=== PATIENT | male | born 1935 | race Caucasian/White ===

== ENCOUNTER 2016-04-24 11:39 | Emergency (ER) ==
--- NOTE | 2016-04-24 11:56 | PROVIDER DOCUMENTATION ---
HPI-Abdominal Pain/GI Problem - General Chief Complaint: Abdominal Pain Stated Complaint: abd pain Time Seen by Provider: 04/24/16 11:55 Source: patient, EMS Allergies/Adverse Reactions: Patient Allergies Allergy/AdvReac Type Severity Reaction Status Date / Time No Known Allergies Allergy Verified 04/24/16 11:55 Home Medications: Home Medication List Medication Instructions Recorded Confirmed Last Taken Type Aspirin [Aspir-Low] 81 mg PO DAILY 04/24/16 04/24/16 Unknown History Carvedilol 3.125 mg PO DAILY 04/24/16 04/24/16 Unknown History Cetirizine HCl [Zyrtec] 10 mg PO DAILY 04/24/16 04/24/16 Unknown History Docusate Sodium [Colace] 100 mg PO DAILY 04/24/16 04/24/16 Unknown History Donepezil [Aricept] 5 mg PO QAM 04/24/16 04/24/16 Unknown History LISINOpril [Prinivil] 10 mg PO DAILY 04/24/16 04/24/16 Unknown History Memantine HCl [Namenda] 5 mg PO DAILY 04/24/16 04/24/16 Unknown History Oxcarbazepine [Trileptal] 150 mg PO DAILY 04/24/16 04/24/16 Unknown History Quetiapine Fumarate [Seroquel] 25 mg PO DAILY 04/24/16 04/24/16 Unknown History Trazodone [Desyrel] 50 mg PO QHS 04/24/16 04/24/16 Unknown History - History of Present Illness-ABD Nature of Presenting Problems: Family reports intermittent abdominal and chest pain. No fever, no n/v. no cough. 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 [facility] resident with severe dementia, DNR . Denies CP currently. Some dysnea with exertion Abdominal Pain Onset Location: reports: generalized abdomen Pain Radiation: reports: no radiation Quality of Pain: reports: aching Severity in ED: reports: moderate Timing: reports: still present, intermittent Activities at Onset: reports: none Exposure to sick contacts?: No Last BM: unsure Dark Stools Present?: reports: none noticed Rectal Bleeding: reports: none Rectal Pain: reports: none Review of Systems - Adult - REVIEW OF SYSTEMS - ADULT ROS:: unobtainable per condition Constitutional: reports: no symptoms reported Ears, Nose, Mouth & Throat: reports: no symptoms reported Cardiovascular: reports: chest pain Respiratory: reports: shortness of breath Gastrointestinal: reports: no symptoms reported Genitourinary: reports: no symptoms reported Past History - Adult - PAST MEDICAL HISTORY-ADULT Review of Records: reports: Nursing Assessment Review, Medications Reviewed Major Childhood Illnesses: reports: history unknown Cardiovascular: reports: CAD, CHF, HTN Respiratory: reports: denies history Gastrointestinal: reports: denies history Genitourinary: reports: denies history Musculoskeletal: reports: arthritis, other (back pain) Psychiatric: reports: other (dementia) - PRIOR SURGERIES/PROCEDURES Surgical/Procedure History: reports: CABG Physical Exam-General - PHYSICAL EXAM-ADULT Initial Vital Signs Reviewed: Yes - CONSTITUTIONAL General Appearance: appears well, alert, no apparent distress - EYES Eyes: PERRL/EOMI - HEAD, EARS, NOSE, MOUTH & THROAT HENMT: moist mucous membranes, normal ENT inspection - NECK Neck: non-tender, full range of motion - RESPIRATORY Respiratory: chest non-tender, decreased breath sounds (at bases) - CARDIOVASCULAR Cardiovascular: regular rate, rhythm, no edema, no gallop, no JVD, no murmur - GASTROINTESTINAL (ABDOMEN) Abdominal Exam: normal bowel sounds, non tender, soft, no organomegaly - GENITOURINARY Male Genitalia: normal genitalia Rectal Exam: deferred - LYMPHATIC Lymphatic: no adenopathy - MUSCULOSKELETAL Back Exam: no CVA tenderness, no vertebral tenderness Extremity: normal inspection, no pedal edema - NEUROLOGIC Neurologic: grossly normal, no motor/sensory deficits - PSYCHIATRIC Psych/Mental Status: other (oriented to self only) Progress - PLAN OF CARE/RESULTS Progress/Plan/Lab Results: Laboratory Tests 04/24/16 04/24/16 04/24/16 12:10 12:10 12:10 WBC 8.79 RBC 3.68 L Hgb 9.3 L Hct 30.2 L MCV 82.1 MCH 25.3 L MCHC 30.8 L RDW Std Deviation 15.8 H Plt Count 307 MPV 9.3 Immature Gran % (Auto) 0.0 Neut % (Auto) 74.0 Lymph % (Auto) 11.4 L [place] % (Auto) 9.3 Eos % (Auto) 5.0 Baso % (Auto) 0.3 Immature Gran # (Auto) 0.00 Neut # (Auto) 6.50 Lymph # (Auto) 1.00 L [place] # (Auto) 0.82 H Eos # (Auto) 0.44 Baso # (Auto) 0.03 Sodium 142 Potassium 4.7 Chloride 106 Carbon Dioxide 24 L Anion Gap 12 BUN 29 H Creatinine 1.3 H Estimated GFR/1.73 m2 53 BUN/Creatinine Ratio 22 Glucose 105 H Calculated Osmolality 289 Calcium 8.9 Total Bilirubin 0.32 AST 20 ALT 23 Alkaline Phosphatase 109 Troponin T < 0.010 Oed-F-Rkigqfycrjc Pept Total Protein 6.8 Albumin 3.7 Globulin 3.1 Albumin/Globulin Ratio 1.2 Amylase 52 Lipase 19 Urine Source Urine Color Urine Turbidity Urine pH Ur Specific [place] Urine Protein Ur Glucose (Stick) Ur Ketones (Stick) Urine Blood Urine Nitrite Urine Bilirubin Urobilinogen Dipstick Urine Leukocytes Urine WBC (Auto) Urine RBC (Auto) U Epithel Cells (Auto) Urine Bacteria (Auto) 04/24/16 04/24/16 12:10 12:10 WBC RBC Hgb Hct MCV MCH MCHC RDW Std Deviation Plt Count MPV Immature Gran % (Auto) Neut % (Auto) Lymph % (Auto) [place] % (Auto) Eos % (Auto) Baso % (Auto) Immature Gran # (Auto) Neut # (Auto) Lymph # (Auto) [place] # (Auto) Eos # (Auto) Baso # (Auto) Sodium Potassium Chloride Carbon Dioxide Anion Gap BUN Creatinine Estimated GFR/1.73 m2 BUN/Creatinine Ratio Glucose Calculated Osmolality Calcium Total Bilirubin AST ALT Alkaline Phosphatase Troponin T Mpk-M-Leuhoginmcq Pept > 96883 H Total Protein Albumin Globulin Albumin/Globulin Ratio Amylase Lipase Urine Source CLEAN CATCH Urine Color YELLOW Urine Turbidity CLEAR Urine pH 6.0 Ur Specific [place] 1.026 Urine Protein 70 A Ur Glucose (Stick) NEGATIVE Ur Ketones (Stick) NEGATIVE Urine Blood NEGATIVE Urine Nitrite NEGATIVE Urine Bilirubin NEGATIVE Urobilinogen Dipstick NORMAL Urine Leukocytes TRACE A Urine WBC (Auto) <10 Urine RBC (Auto) <10 U Epithel Cells (Auto) <10 Urine Bacteria (Auto) NEGATIVE Orders Category Date Time Status Saline Loc DIRECTED Care 04/24/16 12:05 Active NPO Diet 04/24/16 12:05 Active ABDOMEN/PELVIS W/O CONTRAST [CT] Stat Exams 04/24/16 13:05 Draft CHEST-PORTABLE [RAD] Stat Exams 04/24/16 12:06 Draft AMYLASE [CHEM] Stat Lab 04/24/16 12:10 Completed CBC WITH ELECTRONIC DIFF [HEME] Stat Lab 04/24/16 12:10 Completed COMPREHENSIVE METABOLIC PANEL [CHEM] Stat Lab 04/24/16 12:10 Completed LIPASE [CHEM] Stat Lab 04/24/16 12:10 Completed TROPONIN T Stat Lab 04/24/16 12:10 Completed URINALYSIS W/POSS RFLX CULT [URINALYSIS] Stat Lab 04/24/16 12:10 Completed pro-bnp [PRO B-NATRIURETIC PEPTIDE] Stat Lab 04/24/16 12:10 Completed Furosemide [Lasix] Med 04/24/16 14:13 Discontinued 40 mg IV NOW ONE EKG [EKG] Stat Ther 04/24/16 12:04 Ordered Vital Signs Temp Pulse Resp BP Pulse Ox 04/24/16 14:21 69 14 195/75 95 04/24/16 13:24 18 213/97 04/24/16 11:40 97.6 F 72 22 199/85 97 No Known Allergies Allergy (Verified 04/24/16 11:55) Aspirin [Aspir-Low] 81 mg PO DAILY 04/24/16 Carvedilol 3.125 mg PO DAILY 04/24/16 Cetirizine HCl [Zyrtec] 10 mg PO DAILY 04/24/16 Docusate Sodium [Colace] 100 mg PO DAILY 04/24/16 Donepezil [Aricept] 5 mg PO QAM 04/24/16 LISINOpril [Prinivil] 10 mg PO DAILY 04/24/16 Memantine HCl [Namenda] 5 mg PO DAILY 04/24/16 Oxcarbazepine [Trileptal] 150 mg PO DAILY 04/24/16 Quetiapine Fumarate [Seroquel] 25 mg PO DAILY 04/24/16 Trazodone [Desyrel] 50 mg PO QHS 04/24/16 Dietary Diet NPO Start WedApr 24 1205 Laboratory 04/24/16 04/24/16 04/24/16 12:10 12:10 12:10 WBC RBC Hgb Hct MCV MCH MCHC RDW Std Deviation Plt Count MPV Immature Gran % (Auto) Neut % (Auto) Lymph % (Auto) [place] % (Auto) Eos % (Auto) Baso % (Auto) Immature Gran # (Auto) Neut # (Auto) Lymph # (Auto) [place] # (Auto) Eos # (Auto) Baso # (Auto) Sodium Potassium Chloride Carbon Dioxide Anion Gap BUN Creatinine Estimated GFR/1.73 m2 BUN/Creatinine Ratio Glucose Calculated Osmolality Calcium Total Bilirubin AST ALT Alkaline Phosphatase Troponin T < 0.010 Uwi-X-Ivyoxnepbru Pept > 32866 H Total Protein Albumin Globulin Albumin/Globulin Ratio Amylase Lipase Urine Source CLEAN CATCH Urine Color YELLOW Urine Turbidity CLEAR Urine pH 6.0 Ur Specific [place] 1.026 Urine Protein 70 A Ur Glucose (Stick) NEGATIVE Ur Ketones (Stick) NEGATIVE Urine Blood NEGATIVE Urine Nitrite NEGATIVE Urine Bilirubin NEGATIVE Urobilinogen Dipstick NORMAL Urine Leukocytes TRACE A Urine WBC (Auto) <10 Urine RBC (Auto) <10 U Epithel Cells (Auto) <10 Urine Bacteria (Auto) NEGATIVE 04/24/16 04/24/16 12:10 12:10 WBC 8.79 RBC 3.68 L Hgb 9.3 L Hct 30.2 L MCV 82.1 MCH 25.3 L MCHC 30.8 L RDW Std Deviation 15.8 H Plt Count 307 MPV 9.3 Immature Gran % (Auto) 0.0 Neut % (Auto) 74.0 Lymph % (Auto) 11.4 L [place] % (Auto) 9.3 Eos % (Auto) 5.0 Baso % (Auto) 0.3 Immature Gran # (Auto) 0.00 Neut # (Auto) 6.50 Lymph # (Auto) 1.00 L [place] # (Auto) 0.82 H Eos # (Auto) 0.44 Baso # (Auto) 0.03 Sodium 142 Potassium 4.7 Chloride 106 Carbon Dioxide 24 L Anion Gap 12 BUN 29 H Creatinine 1.3 H Estimated GFR/1.73 m2 53 BUN/Creatinine Ratio 22 Glucose 105 H Calculated Osmolality 289 Calcium 8.9 Total Bilirubin 0.32 AST 20 ALT 23 Alkaline Phosphatase 109 Troponin T Fui-A-Zexrkmimojs Pept Total Protein 6.8 Albumin 3.7 Globulin 3.1 Albumin/Globulin Ratio 1.2 Amylase 52 Lipase 19 Urine Source Urine Color Urine Turbidity Urine pH Ur Specific [place] Urine Protein Ur Glucose (Stick) Ur Ketones (Stick) Urine Blood Urine Nitrite Urine Bilirubin Urobilinogen Dipstick Urine Leukocytes Urine WBC (Auto) Urine RBC (Auto) U Epithel Cells (Auto) Urine Bacteria (Auto) - REASSESSMENT Reassessment #1 Time Reassessed: 15:30 (Family declines hospital admission. They understand risk of iminent . Want to respect wishes of patient. both Dr Saldana and I discussed in detail. Hopsital admission cancelled) Reassessment Comment: Multiple discussions with family. The strongly desire comfort care only and - EKG 1 Time of EKG reading by physician:: 14:23 EKG Read and Signed by:: Zuleima Mckeon Rate: 69 Rhythm: nsr [place]: normal QRS: normal ST Wave: non-specific ST changes (lateral T wave inversion? LVH related) - XRAY 1 XRAY Study: Chest (pulmonary edema/ CHF) - CT/MRI 1 CT Study: Abdomen (no acute abnormalities) Departure - Departure Time of Disposition Order: 15:30 DIAGNOSIS: Congestive heart failure Disposition: [facility] 03 Certified Medical Emergency: Emergent Condition: Serious Additional Instructions: Continue current medication. comfort care only. Referrals: Pepe Justice MD [Primary Care Provider] - Instructions: Heart Failure, [id number]
[2016-04-24 12:29] LABS: MANUAL DIFF NEEDED? NO
[2016-04-24 12:34] LABS: BASO% 0.3 % (0.0-0.8); EOS# 0.44 X1000 (0.0-0.7); HEMATOCRIT 30.2 % (42.0-52.0); HEMOGLOBIN 9.3 g/dL (14.0-18.0); LYMPH% 11.4 % (20.5-51.1); MCH 25.3 PG (27-31); MCHC 30.8 g/dL (33-37); MCV 82.1 FL (81-99); MONO# 0.82 X1000 (0.11-0.59); MONO% 9.3 % (1.7-9.3); MPV 9.3 FL (7.4-10.4); PLT 307 X1000 (130-400); RBC 3.68 XMIL (4.7-6.1)
--- NOTE | 2016-04-24 12:40 | Diag Imaging Result Document ---
PROCEDURE NAME: CHEST-PORTABLE - 04/24/2016 PORTABLE CHEST X-RAY: COMPARISON: None. FINDINGS: There are sternotomy changes. There is cardiomegaly and pulmonary vascular congestion. There is significant bilateral interstitial pulmonary edema. There are moderately large pleural effusions. IMPRESSION: Cardiomegaly, pulmonary edema, pleural effusions.
[2016-04-24 12:46] LABS: ALBUMIN 3.7 g/dL (3.5-5.0); CALCIUM 8.9 mg/dL (8.8-10.2); POTASSIUM 4.7 mmol/L (3.5-5.1); TOTAL BILIRUBIN 0.32 mg/dL (0.20-1.00); TOTAL PROTEIN 6.8 g/dL (6.3-8.3)
--- NOTE | 2016-04-24 14:12 | Diag Imaging Result Document ---
PROCEDURE NAME: ABDOMEN/PELVIS W/O CONTRAST - 04/24/2016 CT ABDOMEN PELVIS: A CT dose reduction protocol was used. COMPARISON: None. FINDINGS: There is cardiomegaly. There is anemia. There is interstitial pulmonary edema in the lung bases. There is a moderate right basilar pleural effusion. There is some effusion/atelectasis at the left base as well. There are several benign- appearing cysts in the liver. No radiodense renal stones. No hydronephrosis or hydroureter. The abdominal aorta measures up to 3 cm in maximum diameter. No bowel obstruction or inflammation. Normal appendix. Trace pelvic free fluid. Urinary bladder, prostate, and rectum are normal. No acute bony lesions. There are some [id number] mesenteric lymph nodes. IMPRESSIONS: 1. Pulmonary edema, effusions, and atelectasis in the lung bases. 2. Trace pelvic free fluid, but no acute abnormality in the abdomen or pelvis. [facility]
[2016-04-24] MEDS ORDERED: LASIX IV ONE (14:13)
[2016-04-24 14:23] LABS: URINE CULTURE NEEDED? NO; URINE MICRO REVIEW NEEDED? NO; URINE SOURCE CLEAN CATCH
[2016-04-24 14:26] LABS: BILIRUBIN URINE NEGATIVE (NEGATIVE); BLOOD URINE NEGATIVE (NEGATIVE); COLOR YELLOW; GLUCOSE URINE NEGATIVE (NEGATIVE); LEUKOCYTES URINE TRACE (NEGATIVE); NITRITE URINE NEGATIVE (NEGATIVE); PROTEIN URINE 70 mg/dL (NEGATIVE); SP GRAVITY URINE 1.026; TURBIDITY URINE CLEAR (CLEAR); UROBILINOGEN URINE NORMAL (NORMAL)
[2016-04-24 14:27] LABS: UR EPITHELIAL CELLS <10 /HPF (<10); URINE BACTERIA NEGATIVE /HPF; URINE RBC <10 /HPF (<10); URINE WBC <10 /HPF (<10)
[2016-04-24 15:54] VITALS: BP 193/121
--- NOTE | 2016-04-24 16:33 | EKG Report ---
Test Performed on : 04/24/2016 2:23:17 PM Test Reason : CHEST PAIN Blood Pressure : / mmHG Vent. Rate : 069 BPM Atrial Rate : 069 BPM P-R Int : 204 ms QRS Dur : 108 ms QT Int : 448 ms P-R-T Axes : 103 018 173 degrees QTc Int : 480 ms Normal sinus rhythm. Left ventricular hypertrophy with repolarization abnormality Prolonged QT Abnormal ECG No previous ECGs available Unconfirmed Result
== END 2016-04-24 16:15 ==
LOC: EDBD → ED 11:39
DX: I50.9 Heart failure, unspecified (principal); J81.1 Chronic pulmonary edema; J90 Pleural effusion, not elsewhere classified; J98.11 Atelectasis; R10.84 Generalized abdominal pain; R07.9 Chest pain, unspecified; R06.02 Shortness of breath; R06.00 Dyspnea, unspecified; Z79.899 Other long term (current) drug therapy; I25.10 Atherosclerotic heart disease of native coronary artery without angina pectoris; I10 Essential (primary) hypertension; M19.90 Unspecified osteoarthritis, unspecified site; F03.90 Unspecified dementia, unspecified severity, without behavioral disturbance, psychotic disturbance, mood disturbance, and anxiety; Z79.82 Long term (current) use of aspirin; Z95.1 Presence of aortocoronary bypass graft
CPT/HCPCS: 71010; 74176; 80053; 81001; 82150; 83690; 83880; 84484; 85025; 93005; 96374; J1940